=== PATIENT | male | born 1985 | race Caucasian/White ===

== ENCOUNTER 2019-01-30 06:46 | Emergency (ER) | payer BC, OTHER ==
[2019-01-30 07:46] LABS: Absolute Lymphocytes (CBC) 1.2 K/uL (0.7-4.9); Absolute Monocytes 0.5 K/uL (0.1-1.3); Absolute Neutrophil 3.3 K/uL (1.8-8.0); Basophils % 0.6 % (0-1.3); Eosinophils % 4.4 % (0-4.4); Lymphocytes % 23.6 % (15.3-44.8); MPV 8.1 fL (7.6-11.3); Monocytes % 8.9 % (3.3-12.3)
[2019-01-30 07:51] LABS: Protime INR 1.06
[2019-01-30 08:06] LABS: ALT/SGPT 26 U/L (12-78); AST/SGOT 23 U/L (15-37); Alkaline Phosphatase 100 U/L (45-117); BUN Blood Urea Nitrogen 14 mg/dL (7-18); Bicarbonate 28 mmol/L (21-32); Bilirubin Direct 0.1 mg/dL (0-0.2); Bilirubin Total 0.8 mg/dL (0.2-1.0); Glucose Level 89 mg/dL (74-106); Magnesium 2.1 mg/dL (1.8-2.4); NT PRO-BNP 42 pg/mL (<125); Potassium 3.6 mmol/L (3.5-5.1); Protein, Total 6.8 g/dL (6.4-8.2); Sodium Level 145 mmol/L (136-145); Troponin (Emerg Dept Use Only) < 0.02 ng/mL (0.0-0.045)
--- NOTE | 2019-01-30 08:09 | ER ---
Nurse's Notes [facility] Name: Konrad Roman Age: 33 yrs Sex: Male : 1985 Arrival Date: 01/30/2019 Time: 06:48 Bed 18 Private MD: Gael Rouse T Diagnosis: Chest pain, unspecified Presentation: 01/30 07:01 Presenting complaint: Patient states: ELECTRICAL SHOCK FROM LIGHT FIXTURE. Transition bp of care: patient was not received from another setting of care. Onset of symptoms was January 30, 2019 at 06:45. Risk Assessment: Do you want to hurt yourself or someone else? Patient reports no desire to harm self or others. Initial Sepsis Screen: Does the patient meet any 2 criteria? No. Patient's initial sepsis screen is negative. Does the patient have a suspected source of infection? No. Patient's initial sepsis screen is negative. Care prior to arrival: None. 07:01 Method Of Arrival: Ambulatory bp 07:01 Acuity: MARTA 4 bp Triage Assessment: 07:04 General: Appears in no apparent distress. comfortable, Behavior is calm, cooperative, bp appropriate for age. Pain: Denies pain. EENT: No deficits noted. Neuro: Level of Consciousness is awake, alert, obeys commands, Oriented to person, place, time, situation, Appropriate for age. Cardiovascular: No deficits noted. Respiratory: Airway is patent Respiratory effort is even, unlabored, Respiratory pattern is regular, symmetrical. GI: No signs and/or symptoms were reported involving the gastrointestinal system. : No signs and/or symptoms were reported regarding the genitourinary system. Derm: No deficits noted. Musculoskeletal: Circulation, motion, and sensation intact. Range of motion: intact in all extremities. Historical: - Allergies: 07:04 PENICILLINS; bp - Home Meds: 07:04 Protonix 40 mg Oral TbEC 1 tab once daily [Active]; bp - PMHx: 07:04 GERD; BENIGN ARRYTHMIA; bp - Immunization history:: Adult Immunizations up to date. - Social history:: Smoking status: Patient/guardian denies using tobacco. - Ebola Screening: : Patient negative for fever greater than or equal to 101.5 degrees Fahrenheit, and additional compatible Ebola Virus Disease symptoms Patient denies exposure to infectious person Patient denies travel to an Ebola-affected area in the 21 days before illness onset No symptoms or risks identified at this time. Screenin:07 Abuse screen: Denies threats or abuse. Denies injuries from another. Nutritional bp screening: No deficits noted. Tuberculosis screening: No symptoms or risk factors identified. Fall Risk None identified. Assessment: 07:06 General: SEE TRIAGE NOTE. bp 08:20 Reassessment: PT D/C HOME AMBULATORY WITH FAMILY, DX WITH NONSPECIFIC CHEST PAIN. bp Vital Signs: 07:04 BP 118 / 72; Pulse 55; Resp 16; Temp 98; Pulse Ox 99% ; Weight 86.18 kg; Height 6 ft. 2 bp in. (187.96 cm); 08:00 BP 113 / 78; Pulse 75; Resp 16; Pulse Ox 99% ; bp 07:04 Body Mass Index 24.39 (86.18 kg, 187.96 cm) bp ED Course: 06:48 Patient arrived in ED. am2 06:48 Gael Rouse MD is Private Physician. am2 07:00 Rakesh Conner, YAMILA is Primary Nurse. bp 07:02 Triage completed. bp 07:05 [facility]alante [facility]C [facility] snw 07:05 Glenn Valerio MD is Attending Physician. snw 07:06 Arm band placed on. bp 07:07 Patient has correct armband on for positive identification. Bed in low position. Call bp light in reach. Side rails up X2. Adult w/ patient. 07:30 EKG done, by ED staff, reviewed by Esme MARCANO. jb1 07:39 Inserted saline lock: 22 gauge in right forearm, using aseptic technique. Blood bp collected. 07:46 X-ray completed. Portable x-ray completed in exam room. Patient tolerated procedure kp1 well. 07:47 XRAY Chest (1 view) In Process Unspecified. EDMS 08:08 Gael Rouse MD is Referral Physician. snw 08:21 No provider procedures requiring assistance completed. IV discontinued, intact, bp bleeding controlled, No redness/swelling at site. Pressure dressing applied. Administered Medications: No medications were administered Outcome: 08:09 Discharge ordered by . snw 08:21 Discharged to home ambulatory, with family. bp 08:21 Condition: stable 08:21 Discharge instructions given to patient, Instructed on discharge instructions, follow up and referral plans. medication usage, Demonstrated understanding of instructions, follow-up care, medications, Prescriptions given X 1. 08:22 Patient left the ED. bp Signatures: Dispatcher [employer] EDEduardo Hobbs jb1 Esme Escalante, NETWORK SPECIALIST-C NETWORK SPECIALIST-Csnw Kylie Rodriguez am2 Yvette Dahl kp1 Rakesh Conner, RN RN bp
--- NOTE | 2019-01-30 08:09 | EDPHYS ---
Physician Documentation [facility] Name: Konrad Roman Age: 33 yrs Sex: Male : 1985 Arrival Date: 01/30/2019 Time: 06:48 Bed 18 Private MD: Gael Rouse T ED Physician Glenn Valerio HPI: 01/30 07:34 This 33 yrs old Male presents to ER via Ambulatory with complaints of snw Electrocution, Chest soreness. 07:34 Trauma demographics: County: The injury occurred in [place] Location of Injury: The snw injury occurred at home, Date: January 30, 2019, Time: 06:15. Mechanism of injury: shocked when changing a lightbulb. Associated injuries: The patient sustained no obvious injury. Onset: The symptoms/episode began/occurred suddenly, just prior to arrival. The patient has not experienced similar symptoms in the past. It is unknown whether or not the patient has recently seen a physician. Historical: - Allergies: 07:04 PENICILLINS; bp - Home Meds: 07:04 Protonix 40 mg Oral TbEC 1 tab once daily [Active]; bp - PMHx: 07:04 GERD; BENIGN ARRYTHMIA; bp - Immunization history:: Adult Immunizations up to date. - Social history:: Smoking status: Patient/guardian denies using tobacco. - Ebola Screening: : Patient negative for fever greater than or equal to 101.5 degrees Fahrenheit, and additional compatible Ebola Virus Disease symptoms Patient denies exposure to infectious person Patient denies travel to an Ebola-affected area in the 21 days before illness onset No symptoms or risks identified at this time. ROS: 07:34 Constitutional: Negative for fever, chills, and weight loss, Eyes: Negative for injury, snw pain, redness, and discharge, ENT: Negative for injury, pain, and discharge, Neck: Negative for injury, pain, and swelling. 07:34 Respiratory: Negative for shortness of breath, cough, wheezing, and pleuritic chest pain, Abdomen/GI: Negative for abdominal pain, nausea, vomiting, diarrhea, and constipation, Back: Negative for injury and pain, : Negative for injury, bleeding, discharge, and swelling, MS/Extremity: Negative for injury and deformity, Skin: Negative for injury, rash, and discoloration, Neuro: Negative for headache, weakness, numbness, tingling, and seizure. 07:34 Cardiovascular: Positive for chest pain. Exam: 07:34 Constitutional: This is a well developed, well nourished patient who is awake, alert, snw and in no acute distress. Head/Face: Normocephalic, atraumatic. Eyes: Pupils equal round and reactive to light, extra-ocular motions intact. Lids and lashes normal. Conjunctiva and sclera are non-icteric and not injected. Cornea within normal limits. Periorbital areas with no swelling, redness, or edema. ENT: Nares patent. No nasal discharge, no septal abnormalities noted. Tympanic membranes are normal and external auditory canals are clear. Oropharynx with no redness, swelling, or masses, exudates, or evidence of obstruction, uvula midline. Mucous membranes moist. Neck: Trachea midline, no thyromegaly or masses palpated, and no cervical lymphadenopathy. Supple, full range of motion without nuchal rigidity, or vertebral point tenderness. No Meningismus. Chest/axilla: Normal chest wall appearance and motion. Nontender with no deformity. No lesions are appreciated. Cardiovascular: Regular rate and rhythm with a normal S1 and S2. No gallops, murmurs, or rubs. Normal PMI, no JVD. No pulse deficits. Respiratory: Lungs have equal breath sounds bilaterally, clear to auscultation and percussion. No rales, rhonchi or wheezes noted. No increased work of breathing, no retractions or nasal flaring. Abdomen/GI: Soft, non-tender, with normal bowel sounds. No distension or tympany. No guarding or rebound. No evidence of tenderness throughout. Back: No spinal tenderness. No costovertebral tenderness. Full range of motion. Skin: Warm, dry with normal turgor. Normal color with no rashes, no lesions, and no evidence of cellulitis. MS/ Extremity: Pulses equal, no cyanosis. Neurovascular intact. Full, normal range of motion. Neuro: Awake and alert, GCS 15, oriented to person, place, time, and situation. Cranial nerves II-XII grossly intact. Motor strength 5/5 in all extremities. Sensory grossly intact. Cerebellar exam normal. Normal gait. Psych: Awake, alert, with orientation to person, place and time. Behavior, mood, and affect are within normal limits. Vital Signs: 07:04 BP 118 / 72; Pulse 55; Resp 16; Temp 98; Pulse Ox 99% ; Weight 86.18 kg; Height 6 ft. 2 bp in. (187.96 cm); 08:00 BP 113 / 78; Pulse 75; Resp 16; Pulse Ox 99% ; bp 07:04 Body Mass Index 24.39 (86.18 kg, 187.96 cm) bp MDM: 07:05 Patient medically screened. snw 01/30 07:05 Order name: Urine Microscopic Only; Complete Time: 17:42 snw 01/30 07:10 Order name: Basic Metabolic Panel; Complete Time: 08:07 snw 01/30 07:10 Order name: CBC with Diff; Complete Time: 07:53 snw 01/30 07:10 Order name: LFT's; Complete Time: 08:07 snw 01/30 07:10 Order name: Magnesium; Complete Time: 08:07 snw 01/30 07:10 Order name: NT PRO-BNP; Complete Time: 08:07 snw 01/30 07:05 Order name: EKG; Complete Time: 07:06 snw 01/30 07:05 Order name: EKG - Nurse/Tech; Complete Time: 07:08 snw 01/30 07:10 Order name: PT-INR; Complete Time: 07:53 snw 01/30 07:10 Order name: Troponin (emerg Dept Use Only); Complete Time: 08:07 snw 01/30 07:10 Order name: XRAY Chest (1 view); Complete Time: 17:42 snw 01/30 07:10 Order name: Cardiac monitoring; Complete Time: 07:38 snw 01/30 07:10 Order name: IV Saline Lock; Complete Time: 07:38 snw 01/30 07:28 Order name: Urine Dipstick--Ancillary (enter results); Complete Time: 17:42 mw2 01/30 07:10 Order name: Labs collected and sent; Complete Time: 07:38 snw 01/30 07:10 Order name: O2 Per Protocol; Complete Time: 07:38 snw 01/30 07:10 Order name: O2 Sat Monitoring; Complete Time: 07:38 snw Administered Medications: No medications were administered Disposition: 17:42 Co-signature as Attending Physician, Glenn Valerio MD. ma2 Disposition: 01/30/19 08:09 Discharged to Home. Impression: Chest pain, unspecified. - Condition is Stable. - Discharge Instructions: Nonspecific Chest Pain, Electric Shock Injury. - Prescriptions for orphenadrine citrate 100 mg Oral Tablet Sustained Release - take 1 tablet by ORAL route 2 times per day As needed; 20 tablet. - Medication Reconciliation Form, Thank You Letter, Antibiotic Education, Prescription Opioid Use form. - Follow up: Gael Rouse MD; When: 2 - 3 days; Reason: Recheck today's complaints, Continuance of care, Re-evaluation by your physician. Follow up: Emergency Department; When: As needed; Reason: Worsening of condition. Signatures: Dispatcher [employer] EDMS Esme Escalante, DIANA-C UNLOADING CHECKER-Rakesh Virgen, RN RN Glenn Hernandez MD MD ma2 Corrections: (The following items were deleted from the chart) 08:10 08:09 01/30/2019 08:09 Discharged to Home. Impression: Chest pain, unspecified; snw Electrocution. Condition is Stable. Forms are Medication Reconciliation Form, Thank You Letter, Antibiotic Education, Prescription Opioid Use. Follow up: Gael Rouse; When: 2 - 3 days; Reason: Recheck today's complaints, Continuance of care, Re-evaluation by your physician. Follow up: Emergency Department; When: As needed; Reason: Worsening of condition. snw 08:22 08:10 01/30/2019 08:09 Discharged to Home. Impression: Chest pain, unspecified. bp Condition is Stable. Discharge Instructions: Nonspecific Chest Pain, Electric Shock Injury. Prescriptions for orphenadrine citrate 100 mg Oral Tablet Sustained Release - take 1 tablet by ORAL route 2 times per day As needed; 20 tablet. and Forms are Medication Reconciliation Form, Thank You Letter, Antibiotic Education, Prescription Opioid Use. Follow up: Gael Rouse; When: 2 - 3 days; Reason: Recheck today's complaints, Continuance of care, Re-evaluation by your physician. Follow up: Emergency Department; When: As needed; Reason: Worsening of condition. snw
[2019-01-30 08:18] LABS: Urine Bacteria <20 /HPF (NONE SEEN); Urine RBC <5 /HPF (NONE SEEN)
[2019-01-30 08:19] LABS: Urine Culture Reflex Order NOT NEEDED; Urine Mucus 3+ /HPF (NONE SEEN)
--- NOTE | 2019-01-30 08:48 | RAD REPORT ---
EXAM DESCRIPTION: Stephon Single View01/30/2019 7:47 am CLINICAL HISTORY: Chest pain COMPARISON: 2012 FINDINGS: The lungs appear clear of acute infiltrate. The heart is normal size IMPRESSION: No acute abnormalities displayed
[2019-01-30 09:41] LABS: Urine Blood NEGATIVE (NEG); Urine Glucose NEGATIVE (NEG); Urine Protein NEGATIVE (NEG); Urine pH 5.5 (5.0-7.0)
--- NOTE | 2019-02-01 09:18 | EKG ---
Test Date: 2019-01-30 Test Time: 07:04:49 Boat Builder: BUCKY MEASUREMENT RESULTS: Intervals: Rate: 58 SC: 122 QRSD: 104 QT: 400 QTc: 392 [place]: P: 65 SC: 122 QRS: 93 T: 59 INTERPRETIVE STATEMENTS: Sinus bradycardia with sinus arrhythmia Rightward axis Borderline ECG No previous ECG available for comparison Electronically Signed On 02-01-19 09:17:13 AUTO ROLLER by Regino Fuentes
== END 2019-01-30 08:22 | disposition home or self-care (01) ==
LOC: ER 06:46
DX: R07.9 Chest pain, unspecified (principal); T75.4XXA Electrocution, initial encounter; W86.0XXA Exposure to domestic wiring and appliances, initial encounter; Y93.89 Activity, other specified; Y92.009 Unspecified place in unspecified non-institutional (private) residence as the place of occurrence of the external cause; Z88.0 Allergy status to penicillin
CPT/HCPCS: 36415; 71045; 80048; 80076; 81003; 81015; 83735; 83880; 84484; 85025; 85610; 93005; 99284